=== PATIENT | male | born 1970 | race Two or more races ===

== ENCOUNTER 2016-03-03 14:50 | Emergency (ER) | payer OTHER ==
[2016-03-03 15:11] VITALS: BP 140/94; PULSE 95; TEMP 98.4; BMI 31.9
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
== END 2016-03-03 15:56 | disposition home or self-care (01) ==
LOC: JERFT 14:50
DX: S63.8X1A Sprain of other part of right wrist and hand, initial encounter (principal); X50.0XXA Overexertion from strenuous movement or load, initial encounter; Y35.811A Legal intervention involving manhandling, law enforcement official injured, initial encounter; Y93.89 Activity, other specified; Y92.89 Other specified places as the place of occurrence of the external cause; Y99.0 Civilian activity done for income or pay
CPT/HCPCS: 99281-25

== ENCOUNTER 2016-07-26 15:13 | Emergency (ER) | payer OTHER ==
[2016-07-26] MEDS ORDERED: KETOROLAC TROMETHAMINE 60 MG/2 ML VIAL IM ONE (15:21)
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
[2016-07-26 15:22] VITALS: BP 148/71; PULSE 95; TEMP 98; BMI 31.9
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
== END 2016-07-26 16:29 | disposition home or self-care (01) ==
LOC: JERFT 15:13
PROC: 3E0233Z Introduction of Anti-inflammatory into Muscle, Percutaneous Approach (ICD-10-PCS; principal; 2016-07-26)
DX: S16.1XXA Strain of muscle, fascia and tendon at neck level, initial encounter (principal); X50.0XXA Overexertion from strenuous movement or load, initial encounter; Y93.F2 Activity, caregiving, lifting; Y92.89 Other specified places as the place of occurrence of the external cause; Y99.0 Civilian activity done for income or pay; I10 Essential (primary) hypertension; E78.00 Pure hypercholesterolemia, unspecified; E03.9 Hypothyroidism, unspecified
CPT/HCPCS: 99281-25

== ENCOUNTER 2016-08-11 13:43 | Emergency (ER) | payer OTHER ==
[2016-08-11 13:48] VITALS: BP 128/86; PULSE 122; TEMP 98.2; BMI 34.9
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
[2016-08-11] MEDS ORDERED: DIPHTH,PERTUSS(ACELL),TET 0.5 ML DISP.SYRIN IM ONE (14:08)
== END 2016-08-11 14:17 | disposition home or self-care (01) ==
LOC: JERFT 13:43
PROC: 3E0234Z Introduction of Serum, Toxoid and Vaccine into Muscle, Percutaneous Approach (ICD-10-PCS; principal; 2016-08-11)
DX: S63.501A Unspecified sprain of right wrist, initial encounter (principal); S60.414A Abrasion of right ring finger, initial encounter; S93.491A Sprain of other ligament of right ankle, initial encounter; X50.0XXA Overexertion from strenuous movement or load, initial encounter; Y35.811A Legal intervention involving manhandling, law enforcement official injured, initial encounter; Y93.89 Activity, other specified; Y92.89 Other specified places as the place of occurrence of the external cause
CPT/HCPCS: 90715; 99281-25

== ENCOUNTER 2016-10-09 14:54 | Emergency (ER) | payer OTHER ==
[2016-10-09 14:59] VITALS: BP 150/96; PULSE 108; TEMP 97.6; BMI 31.9
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
== END 2016-10-09 16:10 | disposition home or self-care (01) ==
LOC: JERFT 14:54
DX: S60.211A Contusion of right wrist, initial encounter (principal); S80.01XA Contusion of right knee, initial encounter; W18.39XA Other fall on same level, initial encounter; Y35.811A Legal intervention involving manhandling, law enforcement official injured, initial encounter; Y93.89 Activity, other specified; Y92.89 Other specified places as the place of occurrence of the external cause; Y99.0 Civilian activity done for income or pay; I10 Essential (primary) hypertension; E78.00 Pure hypercholesterolemia, unspecified; Z86.39 Personal history of other endocrine, nutritional and metabolic disease
CPT/HCPCS: 99281-25

== ENCOUNTER 2018-10-28 14:49 | Emergency (ER) | payer OTHER ==
[2018-10-28 15:12] VITALS: BP 150/87; PULSE 102; TEMP 98.4; BMI 30.4
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
== END 2018-10-28 15:21 | disposition home or self-care (01) ==
LOC: JER 14:49
DX: S46.811A Strain of other muscles, fascia and tendons at shoulder and upper arm level, right arm, initial encounter (principal); X50.9XXA Other and unspecified overexertion or strenuous movements or postures, initial encounter; Y35.811A Legal intervention involving manhandling, law enforcement official injured, initial encounter; Y93.89 Activity, other specified; Y92.89 Other specified places as the place of occurrence of the external cause; Y99.0 Civilian activity done for income or pay; I10 Essential (primary) hypertension; E78.00 Pure hypercholesterolemia, unspecified
CPT/HCPCS: 99281-25

== ENCOUNTER 2019-01-04 12:58 | Emergency (ER) | payer OTHER ==
[2019-01-04 13:22] VITALS: BP 123/79; PULSE 88; TEMP 98.2; BMI 30.4
[2019-01-04] MEDS ORDERED: KETOROLAC TROMETHAMINE 60 MG/2 ML VIAL IM ONE (13:25)
[2019-01-04] MEDS ORDERED: KETOROLAC TROMETHAMINE 60 MG/2 ML VIAL ONE (13:28)
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
== END 2019-01-04 15:02 | disposition home or self-care (01) ==
LOC: JERFT 12:58
PROC: 3E0233Z Introduction of Anti-inflammatory into Muscle, Percutaneous Approach (ICD-10-PCS; principal; 2019-01-04)
DX: M25.531 Pain in right wrist (principal); Y35.891A Legal intervention involving other specified means, law enforcement official injured, initial encounter; X58.XXXA Exposure to other specified factors, initial encounter; Y93.89 Activity, other specified; Y92.89 Other specified places as the place of occurrence of the external cause; Y99.0 Civilian activity done for income or pay; I10 Essential (primary) hypertension; E07.9 Disorder of thyroid, unspecified; E78.00 Pure hypercholesterolemia, unspecified
CPT/HCPCS: 73090-TC-RT-FY; 73110-TC-RT-FY; 73130-TC-RT-FY; 99283-25